=== PATIENT | male | born 1980 | race Caucasian/White ===

== ENCOUNTER → 2021-06-26 | Outpatient (CLI) | payer OTHER ==
[~2021-06-26] MED LIST: OMNICEF 300 MG300 MG PO; PROVENTIL HFA6.7 GM INH
== END ==
LOC: US 08:30
DX: R10.9 Unspecified abdominal pain (principal)
CPT/HCPCS: 76700

== ENCOUNTER 2021-07-03 18:54 | Emergency (ER) | payer OTHER | END 2021-07-03 20:14 | disposition left against medical advice (07) | LOC: ER1 18:54 | DX: R07.9 Chest pain, unspecified (principal); M54.9 Dorsalgia, unspecified; I10 Essential (primary) hypertension; F17.210 Nicotine dependence, cigarettes, uncomplicated; Z88.0 Allergy status to penicillin | CPT/HCPCS: 71045; 93005; 99283 ==